=== PATIENT | female | born 2000 | race American Indian/Alaskan Native ===

== ENCOUNTER 2019-06-10 18:16 | Emergency (ER) | payer SELFPAY ==
[2019-06-10 18:28] VITALS: BP 121/66
[2019-06-10] MEDS ORDERED: LIDOCAINE (1%) 10 MG/1 ML VIAL 20 ML MDV INFILTRATI ONE (20:07)
--- NOTE | 2019-06-10 20:41 | Emergency Department Report ---
Abscess Boil HPI - HPI Chief Complaint: Skin/Abscess/Foreign Body Stated Complaint: BUG BITE Time Seen by Provider: 06/10/19 20:07 History: No Fever, No Pain, No Purulent Drainage, No Numbness, No Foreign Body, No Previous History, No Insect Bite HPI: Is a pleasant 19-year-old female presents the emergency department the chief complaint of a painful bump on her chest that has been there for the past few months but reports over the past week she has noticed increasing redness and pain. She denies any drainage. She denies any known past medical history other than asthma which is controlled with an albuterol inhaler, she is allergies to penicillin, she is not on any other medications at this time. Pain is a 6 out of 10 and aggravated with palpation. There are no alleviating factors. She has been doing warm compresses with no relief in her symptoms. Home Medications: Previous Rx's Medication Instructions Recorded Last Taken Type Sulfamethoxazole/Trimethoprim 1 each PO BID #14 tablet 06/10/19 Unknown Rx [Bactrim DS TAB] Allergies/Adverse Reactions: Allergies Allergy/AdvReac Type Severity Reaction Status Date / Time No Known Allergies Allergy Unverified 06/10/19 18:24 ED Review of Systems ROS: Stated complaint: BUG BITE Other details as noted in HPI Comment: All other systems reviewed and negative Constitutional: denies: chills, fever Eyes: denies: eye pain, eye discharge, vision change ENT: denies: ear pain, throat pain Respiratory: denies: cough, shortness of breath, wheezing Cardiovascular: denies: chest pain, palpitations Endocrine: no symptoms reported Gastrointestinal: denies: abdominal pain, nausea, diarrhea Genitourinary: denies: urgency, dysuria, discharge Musculoskeletal: denies: back pain, joint swelling, arthralgia Skin: as per HPI, rash. denies: lesions Neurological: denies: headache, weakness, paresthesias Psychiatric: denies: anxiety, depression Hematological/Lymphatic: denies: easy bleeding, easy bruising ED Past Medical Hx - Past Medical History Previous Medical History?: Yes Hx Asthma: Yes - Surgical History Past Surgical History?: No - Social History Smoking Status: Never Smoker Substance Use Type: Marijuana - Medications Home Medications: Home Medications Medication Instructions Recorded Confirmed Last Taken Type Sulfamethoxazole/Trimethoprim 1 each PO BID #14 tablet 06/10/19 Unknown Rx [Bactrim DS TAB] ED Abscess Boil Physical Exam - Exam General: Vital signs noted. No distress. Alert and acting appropriately. Size: 2 cm Exam: Yes Tenderness, Yes Normal Neurologic Exam, Yes Normal Circulation, No Fluctuance, No Surrounding Cellulites/Erythema, No Lymphangitis, No Crepitation, No Heart Murmur I & D Note - I & D Note I & D Note: Patient was cleaned and prepped with Betadine and sterile dressings. I then injected 1% lidocaine without epinephrine approximately 1 mL was used in a wheel. I then made 1/2 cm incision with an 11 blade scalpel. Purulent drainage was then expressed and the wound was thoroughly irrigated. No packing was needed. The wound was deloculated. A sterile dressing was then applied. Patient tolerated this well. There is less than 5 mL of blood loss. ED Course Vital Signs 06/10/19 18:24 Temperature 98.7 F Pulse Rate 79 Respiratory 16 Rate Blood Pressure 121/66 O2 Sat by Pulse 97 Oximetry Critical care attestation.: If time is entered above; I have spent that time in minutes in the direct care of this critically ill patient, excluding procedure time. ED Medical Decision Making - Medical Decision Making Abscess was drained by incision and drainage. Patient tolerated this very well. Recommended warm compresses 5 minutes every hour and Bactrim will be prescribed. Return to emerge department any change or worsening symptoms. Patient is nontoxic otherwise and in no acute distress. Sirs criteria is negative. - Differential Diagnosis abscess, cellulitis, insect bite ED Disposition Clinical Impression: Abscess Disposition: - TO HOME OR SELFCARE Is pt being admited?: No Condition: Stable Instructions: Abscess (ED) Prescriptions: Sulfamethoxazole/Trimethoprim [Bactrim DS TAB] 1 each PO BID #14 tablet Referrals: [facility] [Provider Group] - 3-5 Days Time of Disposition: 20:40
== END 2019-06-10 21:57 | disposition home or self-care (01) ==
LOC: ED 18:16
DX: J86.9 Pyothorax without fistula (principal); J45.909 Unspecified asthma, uncomplicated; Z79.899 Other long term (current) drug therapy; W57.XXXA Bitten or stung by nonvenomous insect and other nonvenomous arthropods, initial encounter; Y93.89 Activity, other specified; Y92.89 Other specified places as the place of occurrence of the external cause; Y99.8 Other external cause status
CPT/HCPCS: 99282

== ENCOUNTER 2019-12-28 08:09 | Emergency (ER) | payer SELFPAY ==
[2019-12-28] MEDS ORDERED: DIPHtheria,PERTUSSIS(ACELL),TETANUS VACCINE/PF 0.5 ML VIAL IM ONE (13:38)
[2019-12-28] MEDS ORDERED: LIDOCAINE (1%) 10 MG/1 ML VIAL 20 ML MDV INFILTRATI ONE (13:38)
[2019-12-28] MEDS ORDERED: HYDROcodone/ACETAMINOPHEN 7.5-325MG TAB PO ONE (13:38)
--- NOTE | 2019-12-28 14:21 | XRay Report ---
Right forearm 2 views INDICATION: right forearm laceration by glass window. COMPARISON: No relevant prior imaging study available. FINDINGS: No acute skeletal abnormality. There is soft tissue swelling along the volar/ulnar aspect of the distal forearm. No radiodense forei gn bodies. IMPRESSION: 1. No radiodense foreign bodies. Signer Name: Sandro Cruz MD Signed: 12/28/2019 2:17 PM Workstation Name: [id number]
--- NOTE | 2019-12-28 14:58 | Emergency Department Report ---
- General Chief Complaint: Wound/Laceration Stated Complaint: ARM LAC Time Seen by Provider: 12/28/19 13:18 Source: patient Mode of arrival: Ambulatory Limitations: No Limitations - History of Present Illness Initial Comments: Patient is a 19-year-old female presents emergency room with complaints of a laceration to the right forearm that occurred around 8 AM this morning. Patient states that she was opening a sliding window but could not get it open so she pushed the window and the window broke and cut her arm. She states that she was cut by the window glass. She states initially there was bleeding but she used a washcloth and the bleeding resolved. She denies any numbness or weakness. She is able to move the arm and the digits without any difficulty. She is unsure of her last tetanus immunization. She has an allergy to penicillin. Last menstrual cycle December 22, 2019. - Related Data Previous Rx's Medication Instructions Recorded Last Taken Type Sulfamethoxazole/Trimethoprim 1 each PO BID #14 tablet 06/10/19 Unknown Rx [Bactrim DS TAB] Ibuprofen [Motrin 600 MG tab] 600 mg PO Q8H PRN #10 tablet 12/28/19 Unknown Rx Sulfamethoxazole/Trimethoprim 1 each PO BID 7 Days #14 tablet 12/28/19 Unknown Rx [Bactrim DS TAB] Allergies Allergy/AdvReac Type Severity Reaction Status Date / Time Penicillins Allergy Unknown Verified 12/28/19 08:57 ED Review of Systems ROS: Stated complaint: ARM LAC Other details as noted in HPI Comment: All other systems reviewed and negative ED Past Medical Hx - Past Medical History Previous Medical History?: Yes Hx Asthma: Yes - Surgical History Past Surgical History?: No - Social History Smoking Status: Never Smoker Substance Use Type: None - Medications Home Medications: Home Medications Medication Instructions Recorded Confirmed Last Taken Type Sulfamethoxazole/Trimethoprim 1 each PO BID #14 tablet 06/10/19 Unknown Rx [Bactrim DS TAB] Ibuprofen [Motrin 600 MG tab] 600 mg PO Q8H PRN #10 tablet 12/28/19 Unknown Rx Sulfamethoxazole/Trimethoprim 1 each PO BID 7 Days #14 tablet 12/28/19 Unknown Rx [Bactrim DS TAB] ED Physical Exam - General Limitations: No Limitations General appearance: alert, in no apparent distress - Head Head exam: Present: atraumatic, normocephalic - Eye Eye exam: Present: normal appearance - ENT ENT exam: Present: mucous membranes moist - Respiratory Respiratory exam: Absent: respiratory distress, accessory muscle use - Extremities Exam Extremities exam: Present: other (6 cm superificial laceration present to the medial surface of the right forearm, no bleeding, no foreign body visualized, no muscle/tendon involvement, no bony ttp of the RUE, FROM of the RUE, neurovas cularly intact) - Neurological Exam Neurological exam: Present: alert, oriented X3 - Psychiatric Psychiatric exam: Present: normal affect, normal mood - Skin Skin exam: Present: warm, dry ED Course Vital Signs 12/28/19 12/28/19 08:27 15:49 Temperature 98.4 F 97.8 F Pulse Rate 71 80 Respiratory 18 16 Rate Blood Pressure 118/67 Blood Pressure 100/51 [Left] O2 Sat by Pulse 97 99 Oximetry - Laceration /Wound Repair Right Medial Arm Wound Location: upper extremity (right medial forearm) Wound Length (cm): 6 Wound's Depth, Shape: superficial Wound Explored: clean Irrigated w/ Saline (ccs): 500 Betadine Prep?: Yes Anesthesia: 1% Lidocaine Volume Anesthetic (ccs): 10 Wound Debrided: moderate Wound Repaired With: sutures Suture Size/Type: 4:0 Number of Sutures: 9 Layer Closure?: No Sterile Dressing Applied?: Yes Progress: Wound irrigated with saline and thoroughly scrubbed with Betadine, no foreign body, no muscle or tendon involvement, 9 cc of 1% lidocaine without epinephrine used as anesthetic, Betadine prep again, sterile drapes applied, 4-0 Prolene used for skin closure, 9 sutures placed, patient tolerated well, no complications, bleeding controlled, sterile dressing applied ED Medical Decision Making - Radiology Data Radiology results: report reviewed, image reviewed Ordering Physician: RADHA MCCULLOUGH Date of Service: 12/28/19 Procedure(s): XR forearm RT Accession Number(s): [id number] cc: RADHA MCCULLOUGH Fluoro Time In Minutes: Right forearm 2 views INDICATION: right forearm laceration by glass window. COMPARISON: No relevant prior imaging study available. FINDINGS: No acute skeletal abnormality. There is soft tissue swelling along the volar/ulnar aspect of the distal forearm. No radiodense foreign bodies. IMPRESSION: 1. No radiodense foreign bodies. Signer Name: Sandro Cruz MD Signed: 12/28/2019 2:17 PM Workstation Name: [id number] Transcribed By: SW Dictated By: Sandro Cruz MD Electronically Authenticated By: Sandro Cruz MD Signed Date/Time: 12/28/191416 DD/ 15 TD/TT: - Medical Decision Making Patient is a 19-year-old female presents emergency room with complaints of a laceration to the right forearm that occurred around 8 AM this morning. Patient states that she was opening a sliding window but could not get it open so she pushed the window and the window broke and cut her arm. She states that she was cut by the window glass. She states initially there was bleeding but she used a washcloth and the bleeding resolved. She denies any numbness or weakness. She is able to move the arm and the digits without any difficulty. She is unsure of her last tetanus immunization. She has an allergy to penicillin. Last menstrual cycle December 22, 2019. vitals are normal. on exam: 6 cm superificial laceration present to the medial surface of the right forearm, no bleeding, no foreign body visualized, no muscle/tendon involvement, no bony ttp of the RUE, FROM of the RUE, neurovascularly intact. XR right forearm: 1. No radiodense foreign bodies. Wound irrigated with saline and thoroughly scrubbed with Betadine and repaired per procedure note without any complications. pt given bactrim and ibuprofen. advised pt Please keep area clean, dry, covered. May wash with antibacterial soap and water and pat dry. No hot tub or pool. Sutures will need to be removed within 10 to 14 days. Please take medication as prescribed. Follow-up with a primary care doctor. Return to emergency room for any new or worsening symptoms. Critical care attestation.: If time is entered above; I have spent that time in minutes in the direct care of this critically ill patient, excluding procedure time. ED Disposition Clinical Impression: Laceration of right forearm Qualifiers: Encounter type: initial encounter Qualified Code(s): S51.811A - Laceration without foreign body of right forearm, initial encounter Disposition: DC- TO HOME OR SELFCARE Is pt being admited?: No Does the pt Need Aspirin: No Condition: Stable Instructions: Laceration Care, Adult, Sutured Wound Care Additional Instructions: Please keep area clean, dry, covered. May wash with antibacterial soap and water and pat dry. No hot tub or pool. Sutures will need to be removed within 10 to 14 days. Please take medication as prescribed. Follow-up with a primary care doctor. Return to emergency room for any new or worsening symptoms. Prescriptions: Sulfamethoxazole/Trimethoprim [Bactrim DS TAB] 1 each PO BID 7 Days #14 tablet Ibuprofen [Motrin 600 MG tab] 600 mg PO Q8H PRN #10 tablet PRN Reason: Pain Referrals: PRIMARY CARE, [Primary Care Provider] - 2-3 Days Time of Disposition: 15:35 Print Language: PORTUGUESE
[2019-12-28 15:51] VITALS: BP 100/51
== END 2019-12-28 15:45 | disposition home or self-care (01) ==
LOC: ED 08:09
DX: S51.811A Laceration without foreign body of right forearm, initial encounter (principal); J45.909 Unspecified asthma, uncomplicated; Z79.899 Other long term (current) drug therapy; Z88.0 Allergy status to penicillin
CPT/HCPCS: 90471; 90715; 99283